=== PATIENT | female | born 2000 | race African-American/Black ===

== ENCOUNTER 2023-03-09 23:45 | Emergency (ER) | payer OTHER ==
[~2023-03-09] VITALS: Ht 182.9 cm; Wt 72.7 kg
[2023-03-09 23:53] VITALS: BP 119/81; TEMP 98.9
[2023-03-10] MEDS ORDERED: AMOXICILLIN 8751 TAB PO (00:26)
[2023-03-10 00:35] VITALS: PULSE 92
== END 2023-03-10 00:35 | disposition home or self-care (01) ==
LOC: COL.ER 23:45
DX: S61.252A Open bite of right middle finger without damage to nail, initial encounter (principal); S80.812A Abrasion, left lower leg, initial encounter; Z23 Encounter for immunization; W54.0XXA Bitten by dog, initial encounter